=== PATIENT | male | born 1995 | race Two or more races ===

== ENCOUNTER 2020-10-13 15:21 | Emergency (ER) | payer SELFPAY ==
[~2020-10-13] VITALS: Ht 172.7 cm; Wt 78.0 kg
[2020-10-13 15:33] VITALS: BP 132/86
== END 2020-10-13 16:07 | disposition left against medical advice (07) ==
LOC: ER 15:21
DX: R68.89 Other general symptoms and signs (principal); Z53.21 Procedure and treatment not carried out due to patient leaving prior to being seen by health care provider